=== PATIENT | male | born 1970 | race African-American/Black ===

== ENCOUNTER 2017-08-29 15:30 | Emergency (ER) | payer BC ==
[2017-08-29] MEDS: AUGMENTIN 875 MG TAB PO (16:18)
[2017-08-29] MEDS: ADACEL/BOOSTRIX VACCINE (DIPHTH/PERTUSS/ACELL/TETANUS)0.5ML SYR (90715) IM (16:19)
== END 2017-08-29 17:17 | disposition home or self-care (01) ==
LOC: M ED 15:30
DX: S61.431A Puncture wound without foreign body of right hand, initial encounter (principal); W54.0XXA Bitten by dog, initial encounter; Y92.099 Unspecified place in other non-institutional residence as the place of occurrence of the external cause; Y93.89 Activity, other specified; Y99.9 Unspecified external cause status; Z87.891 Personal history of nicotine dependence
CPT/HCPCS: 90715